=== PATIENT | male | born 1985 | race Two or more races ===

== ENCOUNTER 2016-10-25 18:02 | Emergency (ER) | payer OTHER ==
[~2016-10-25] VITALS: Ht 172.7 cm; Wt 73.6 kg
[2016-10-25 18:31] LABS: EOSINOPHIL (%) 2.7 % (0-5); EOSINOPHIL COUNT 0.2 K/uL (0-0.3); HEMATOCRIT 42.7 % (38.0-50.0); IMMATURE GRANULOCYTE (%) 0.1 % (0.0-0.7); IMMATURE GRANULOCYTE COUNT 0.1 K/uL; LYMPHOCYTE COUNT 3.6 K/uL (1.0-2.8); MCH 28.6 PG (29.0-34.0); MCHC 35.1 G/DL (30.0-36.0); MCV 81.5 FL (86-99); MEAN PLAT.VOLUME 9.9 uM^3 (9.0-12.4); MONOCYTE (%) 8.2 % (3-12); MONOCYTE COUNT 0.7 K/uL (0-0.8); NEUTROPHIL (%) 46.6 % (45-76); PLATELET COUNT 186 K/uL (156-360); RBC DIS.WIDTH-SD 37.7 % (39-53); RED BLOOD COUNT 5.24 M/uL (4.00-5.50); WHITE BLOOD COUNT 8.6 K/uL (4.1-10.2)
[2016-10-25 18:35] VITALS: BP 110/70
[2016-10-25 18:56] LABS: CHLORIDE 106 mEq/L (99-109); POTASSIUM 4.5 mEq/L (3.7-5.4); SODIUM 139 mEq/L (136-147)
[2016-10-25 18:58] LABS: GLUCOSE 90 mg/dL (70-99)
[2016-10-25 19:00] LABS: ANION GAP 12 MEQ/L (2-14); TOTAL BILIRUBIN 0.4 mg/dL (0.0-1.0)
[2016-10-25 19:02] LABS: ALKALINE PHOSPHATASE 52 IU/L (3-129); GFR ESTIMATE (CALCULATED) > 59 mL/min/
[2016-10-25 19:03] LABS: UREA NITROGEN (BUN) 16 mg/dL (9-23)
[2016-10-25 19:04] LABS: DIRECT BILIRUBIN 0.2 mg/dL (0.0-0.3)
[2016-10-25 19:53] LABS: HPCA INDEX 0.18
[2016-10-25 19:54] LABS: AHBS INDEX > 1000.00; HEPATITIS B SURFACE ANTIBODY REACTIVE
== END 2016-10-25 18:36 | disposition home or self-care (01) ==
LOC: EME 18:02
PROVIDERS: Physician Assistant
DX: S60.412A Abrasion of right middle finger, initial encounter (principal); Z77.21 Contact with and (suspected) exposure to potentially hazardous body fluids; W46.0XXA Contact with hypodermic needle, initial encounter; Y92.238 Other place in hospital as the place of occurrence of the external cause; Y99.0 Civilian activity done for income or pay
CPT/HCPCS: 80048; 80076; 85025; 86706; 86803; 99281; 99283